=== PATIENT | female | born 1975 | race Caucasian/White ===

== ENCOUNTER 2023-12-23 13:01 | Emergency (ER) | payer OTHER, SELFPAY ==
--- NOTE | 2023-12-23 13:27 | XR_ITS ---
Examination: Forearm, right, 2 views. Technique: Forearm, AP, lateral 2 views Date and time of exam: December 23, 2023 1334 hours INDICATIONS: Lifting injury to the forearm today, forearm pain FINDINGS: Acute fracture No dislocation No foreign body IMPRESSION: No acute fracture
--- NOTE | 2023-12-23 13:27 | XR_ITS ---
Examination: Right elbow 3 views TECHNIQUE: AP oblique lateral right elbow 3 views Exam date and time: December 23, 2023 1336 hours INDICATIONS: Lifting injury to the elbow today, elbow pain. FINDINGS: No fracture or dislocation No foreign body IMPRESSION: No fracture or dislocation
[2023-12-23 13:28] VITALS: BP 165/94; PULSE 64; RESP 16; TEMP 36.8; O2SAT 97; BMI 30.9
--- NOTE | 2023-12-23 15:40 | EDNOTE_ITS ---
Upper Extremity Injury RME/HPI General Chief Complaint: Extremity Injury, Upper Stated Complaint: INJURED RIGHT ARM AT WORK Time Seen by Provider: 12/23/23 13:17 Arrival date/time: 12/23/23 13:01 48-year-old female presents emergency department complaints of right forearm pain after lifting at work today Limitations: no limitations Related Data Previous Rx's ?Medication ?Instructions ?Recorded cyclobenzaprine 10 mg tablet 10 mg PO TID PRN muscle spasm 10 12/23/23 days #30 tab-caps hydrocodone 5 mg-acetaminophen 325 1 tab PO BID PRN pain #10 tabs 12/23/23 mg tablet ibuprofen 800 mg tablet 800 mg PO TID PRN pain #30 tabs 12/23/23 Allergies Allergy/AdvReac Type Severity Reaction Status Date / Time latex Allergy Verified 12/23/23 13:03 metoclopramide [From Reglan] Allergy Verified 12/23/23 13:03 prochlorperazine Allergy Verified 12/23/23 13:03 [From Compazine] Review of Systems Review of Systems Systems Reviewed: All systems reviewed, normal except as documented Constitutional Constitutional: Reports system reviewed and no additional complaints, except as documented, Denies fever(s) and Denies headache(s) Eyes Eyes: Reports system reviewed and no additional complaints, except as documented and Denies blurry vision ENT Ears, Nose, Mouth, and Throat: Reports system reviewed and no additional complaints, except as documented, Denies headache(s), Denies nasal congestion and Denies nasal discharge Cardiovascular Cardiovascular: Reports system reviewed and no additional complaints, except as documented, Denies chest pain and Denies dyspnea Respiratory Respiratory: Reports system reviewed and no additional complaints, except as documented, Denies chest congestion, Denies cough and Denies dyspnea Gastrointestinal Gastrointestinal: Reports system reviewed and no additional complaints, except as documented and Denies abdominal pain Musculoskeletal Musculoskeletal: Reports system reviewed and no additional complaints, except as documented, Denies numbness, Reports stiffness, Denies tingling and Reports other (Right arm pain) Integumentary/Breasts Skin/Breast: Reports system reviewed and no additional complaints, except as documented and Denies rash Neurologic Neurologic: Reports system reviewed and no additional complaints, except as documented, Reports as per HPI, Denies headache(s), Denies numbness and Denies tingling Past Medical History Past Medical History NEUROLOGIC: Negative Neurological Disorders CARDIAC: Negative Cardiac Disorders ED Exam General Limitations: Present no limitations General appearance: Present alert and in no apparent distress Head Head exam: Present atraumatic Eye Eye exam: Present normal appearance, PERRL and EOMI ENT ENT exam: Present normal exam, normal oropharynx and mucous membranes moist Neck Neck exam: Present normal inspection, full ROM and trachea midline Chest Chest inspection: Present normal inspection and symmetric chest wall rise Respiratory Respiratory exam: Present normal lung sounds bilaterally Cardiovascular Cardiovascular exam: Present regular rate, normal rhythm and normal heart sounds Abdominal Exam Abdominal exam: Present soft and normal bowel sounds Extremities Exam Extremities exam: Present full ROM, tenderness and normal capillary refill; Absent joint swelling Back Exam Back exam: Present normal inspection and full ROM Neurological Exam Neurological exam: Present alert, oriented X3 and CN II-XII intact Psychiatric Psychiatric exam: Present normal affect and normal mood Skin Skin exam: Present warm, dry, intact and normal color Course Quality Measures none Orders Category Date Time Status XR elbow comp RT min 3V Stat Exams 12/23/23 13:27 Completed XR forearm RT 2V Stat Exams 12/23/23 13:27 Completed Vital Signs Vital signs: Vital Signs Temperature 98.2 F 12/23/23 13:28 Pulse Rate 64 12/23/23 13:28 Respiratory Rate 16 12/23/23 13:28 Blood Pressure 165/94 H 12/23/23 13:28 Pulse Oximetry (%) 97 12/23/23 13:28 Oxygen Delivery Method Room Air 12/23/23 13:28 O2 saturation 97% room air within normal Extremity Injury MDM Narrative MDM Narrative:: 48-year-old female presents emergency department complaints of right forearm pain after lifting at work today On exam patient has pain and tenderness to the right forearm region X-rays obtained no acute emergent findings noted Explained to the patient she will need an outpatient MRI and follow-up with Workmen's Comp. for worsening symptoms to return immediately Patient data External records reviewed:: [facility] previous records Clinical information provided by:: patient Social determinants that could affect healthcare access:: none Patient has the following chronic illnesses:: None How is presenting disease/condition affected by chronic disease/condition?: no chronic disease Evaluation data The following diagnostics were reviewed and interpreted by me:: radiology exam(s) Lab and/or radiology exams considered but not ordered:: Radiology obtained Interpretation Summary: Reviewed by me Medications / Prescriptions Medications or Prescriptions considered but not ordered:: Rx given Medication administrations:: Rx given Consultations Consultation(s) initiated? (list below): No Diagnosis Upper Extremity Injury Differential Diagnosis: other (Wrist pain, forearm sprain, ligamentous tear) Most likely diagnosis given after review of the tests above:: Ligamentous tear Admission Indicated Admission indicated?: not indicated Admission Request Was there a request for admission?: No Disposition Plan Disposition Plan: Discharge Discharge Attestation Discharge Attestation: The patient and all family members were given an opportunity to ask questions and understood the discharge instructions. Discharge instructions specifically effects, indications for sooner follow up or return to the emergency department, and the expected course of current diagnosis. Patient condition: Stable Discharge Plan Plan Patient Disposition: HOME (Self Care) Disposition Comment: Stable Prescriptions/Referrals Prescriptions/Med Rec: New cyclobenzaprine 10 mg tablet 10 mg PO TID PRN (Reason: muscle spasm) 10 Days Qty: 30 0RF ibuprofen 800 mg tablet 800 mg PO TID PRN (Reason: pain) Qty: 30 0RF hydrocodone-acetaminophen 5-325 mg tablet 1 tab PO BID MDD 10 PRN (Reason: pain) Qty: 10 0RF Referrals: Boubacar Scherer MD [Primary Care Provider] - 12/24/23 Problem List Clinical Impression: Arm pain, right, Work related injury Patient/Caregiver Discharge Instructions Education Materials: ED RICE Additional Instructions: Please follow up with your primary care doctor in the next 24-48hrs for any worsening symptoms return here immediately Print Language: Tuvaluan Stand Alone Forms: Adriana Award Info., Patient Portal Info Letter CLAY/NATALY Supervising Physician PA/NATALY Supervising Physician: Dr. Dyer
--- NOTE | 2023-12-23 15:51 | PC.NURSE ---
CALLED FOR PT TO REVITAL NA IN LOBBY OR OUTSIDE [id number]
== END 2023-12-23 16:03 | disposition home or self-care (01) ==
PROVIDERS: Emergency Provider Emergency Medicine; PCP Family Medicine
DX: S59.911A Unspecified injury of right forearm, initial encounter (principal); S59.901A Unspecified injury of right elbow, initial encounter; X50.9XXA Other and unspecified overexertion or strenuous movements or postures, initial encounter; Y99.0 Civilian activity done for income or pay
CPT/HCPCS: 73080; 73090; 99283